=== PATIENT | male | born 1930 | race Caucasian/White ===

== ENCOUNTER 2017-08-24 00:49 | Emergency (ER) | payer OTHER ==
[~2017-08-24] VITALS: Ht 182.9 cm; Wt 78.5 kg
[~2017-08-24 00:49] MED LIST: ASPIR 8181 M1 PO; ATIVAN0.5 MG PO; ATIVAN1 MG PO; BUSPAR10 MG PO; CELEXA20 MG PO; ELOCON 0.1% CRE15 GM TP; ERYTHROMYCIN O3.5 GM RIGHT EYE; FUTURO RESTORI1 EACH MC; PRILOSEC20 MG PO; SEROQUEL12.5 MG PO; SEROQUEL50 MG PO; TYLENOL REGULA325 MG PO; ZESTRIL2.5 MG PO
[2017-08-24 03:19] VITALS: BP 167/78
== END 2017-08-24 03:21 | disposition home or self-care (01) ==
LOC: EME → EDSEX 00:49 → EDBD 00:49 → EME 03:21
DX: S01.01XA Laceration without foreign body of scalp, initial encounter (principal); W06.XXXA Fall from bed, initial encounter; Y92.193 Bedroom in other specified residential institution as the place of occurrence of the external cause; G30.9 Alzheimer's disease, unspecified; F02.80 Dementia in other diseases classified elsewhere, unspecified severity, without behavioral disturbance, psychotic disturbance, mood disturbance, and anxiety; Z87.891 Personal history of nicotine dependence
CPT/HCPCS: 70450; 72125; 99281; 99284

== ENCOUNTER 2018-01-05 20:50 | Emergency (ER) | payer OTHER ==
[~2018-01-05] VITALS: Ht 175.3 cm; Wt 78.9 kg
[2018-01-05 22:46] VITALS: BP 150/73
== END 2018-01-05 22:48 | disposition home or self-care (01) ==
LOC: EME → EDBD 20:50 → EME 22:48
DX: G30.9 Alzheimer's disease, unspecified (principal); F02.80 Dementia in other diseases classified elsewhere, unspecified severity, without behavioral disturbance, psychotic disturbance, mood disturbance, and anxiety; Z91.81 History of falling; Z87.891 Personal history of nicotine dependence; Z66 Do not resuscitate
CPT/HCPCS: 99281; 99284